=== PATIENT | male | born 1975 | race Caucasian/White ===

== ENCOUNTER → 2017-12-23 | Outpatient (CLI) | payer OTHER ==
--- NOTE | 2017-12-23 17:55 | CT ---
EXAMINATION TYPE: CT chest wo con DATE OF EXAM: 12/23/2017 COMPARISON: NONE HISTORY: Chronic bronchitis. CT DLP: 695 mGycm. Automated Exposure Control for Dose Reduction was Utilized. TECHNIQUE: CT scan of the thorax is performed without IV contrast. FINDINGS: The heart and mediastinum appear normal. There is no mediastinal adenopathy. There are no hilar fabiola s. There is no pericardial effusion. There is no pleural effusion. The bony thorax appears intact. Th e lungs are clear of infiltrate. There is no evidence of a pulmonary mass. IMPRESSION: Normal CT scan of the chest.
== END | disposition home or self-care (01) ==
LOC: RADCTMAIN 17:27
PROVIDERS: ATTEND Nurse Practitioner Adult Health
DX: J42 Unspecified chronic bronchitis (principal)
CPT/HCPCS: 71250